=== PATIENT | female | born 1945 | race Caucasian/White ===

== ENCOUNTER → 2023-03-26 08:24 | Outpatient (REF) | payer MEDICARE, OTHER, SELFPAY ==
[2023-03-26 12:04] LABS: Vitamin D, 25-OH*** 66.6 ng/mL (30-80)
[2023-03-26 12:18] LABS: TSH Reflex To Free T4 0.43 uIU/ml (0.47-4.68)
[2023-03-26 12:25] LABS: Protein/creatinine Ratio 0.4; Urine Protein 11 mg/dl
[2023-03-26 12:47] LABS: Free T4 1.36 ng/dl (0.78-2.19)
[2023-03-26 14:04] LABS: Glycohemoglobin (HgbA1c) 5.9 % (4.0-5.6)
[2023-03-28 21:44] LABS: ANA, IgG Reflex to HEp-2 Detected (None Detected)
[2023-03-31 07:08] LABS: ANA, HEp-2, IgG Detected (<1:80)
[2023-03-31 07:11] LABS: ANA Pattern Speckled
== END ==
LOC: HWRAD 08:24
PROVIDERS: ATTENDING PHYSICIAN Nurse Practitioner Primary Care
DX: I10 Essential (primary) hypertension (principal); N18.31 Chronic kidney disease, stage 3a; G62.9 Polyneuropathy, unspecified; R73.03 Prediabetes; R42 Dizziness and giddiness; E55.9 Vitamin D deficiency, unspecified; M85.89 Other specified disorders of bone density and structure, multiple sites
CPT/HCPCS: 36415; 76770; 82306; 82570; 83036; 84156; 84439; 84443; 86038; 86039

== ENCOUNTER → 2023-03-28 12:37 | Outpatient (REF) | payer MEDICARE, OTHER, SELFPAY ==
[2023-03-28 15:52] LABS: % Basophils 0.5 % (0-2); % Eosinophils 3.7 % (0-6); % Immature Granulocytes 0.9 % (0-0.5); % Lymphocytes 18.8 % (20.5-51.1); % Monocytes 6.6 % (1.7-9.3); % Neutrophils 69.5 % (42.2-75.2); Absolute Eosinophils 0.3 10^3/uL (0-0.7); Absolute Immature Granulocytes 0.1 10^3/uL (0-0.05); Absolute Lymphocytes 1.5 10^3/uL (1.2-3.4); Absolute Monocytes 0.5 10^3/uL (0.1-0.6); Absolute Neutrophils 5.4 10^3/uL (1.4-6.5); Hematocrit 34.3 % (37.0-47.0); Hemoglobin 11.7 g/dL (12.0-16.0); Mean Corp Hgb Conc. 34.1 g/dL (33.0-37.0); Mean Corpuscular Hgb 29.8 pg (27.0-31.0); Mean Corpuscular Volume 87.3 fL (81.0-99.0); Mean Platelet Volume 10.4 fL (7.4-10.4); Nucleated Red Blood Cells % 0 %; Platelet Count 236 10^3/uL (130-400); Red Blood Cell Count 3.93 10^6/uL (4.20-5.40); Red Cell Dist. Width 13.2 % (11.5-14.5); White Blood Cell Count 7.8 10^3/uL (4.8-10.8)
[2023-03-28 16:14] LABS: Blood Urea Nitrogen 22 mg/dl (7-17); Calcium 9.3 mg/dl (8.4-10.2); Carbon Dioxide 24 mmol/L (22-30); Chloride 101 mmol/L (98-107); Glucose 99 mg/dl (70-99); Sodium 134 mmol/L (135-145); eGFR 58.39
[2023-03-28 16:20] LABS: Potassium 4.1 mmol/L (3.5-5.1)
== END ==
LOC: HWLAB 12:37
PROVIDERS: ATTENDING PHYSICIAN Orthopaedic Surgery Hand Surgery
DX: Z01.818 Encounter for other preprocedural examination (principal)
CPT/HCPCS: 36415; 80048; 85025; 93005

== ENCOUNTER → 2023-06-04 07:51 | Outpatient (REF) | payer MEDICARE, OTHER, SELFPAY ==
[2023-06-04 10:19] LABS: % Basophils 0.9 % (0-2); % Eosinophils 6.5 % (0-6); % Immature Granulocytes 0.5 % (0-0.5); % Lymphocytes 19.8 % (20.5-51.1); % Monocytes 7.1 % (1.7-9.3); % Neutrophils 65.2 % (42.2-75.2); Absolute Basophils 0.1 10^3/uL (0-0.2); Absolute Eosinophils 0.4 10^3/uL (0-0.7); Absolute Lymphocytes 1.3 10^3/uL (1.2-3.4); Absolute Monocytes 0.5 10^3/uL (0.1-0.6); Absolute Neutrophils 4.2 10^3/uL (1.4-6.5); Hematocrit 31.3 % (37.0-47.0); Hemoglobin 10.2 g/dL (12.0-16.0); Mean Corp Hgb Conc. 32.6 g/dL (33.0-37.0); Mean Corpuscular Hgb 28.3 pg (27.0-31.0); Mean Corpuscular Volume 86.9 fL (81.0-99.0); Mean Platelet Volume 9.6 fL (7.4-10.4); Nucleated Red Blood Cells % 0 %; Platelet Count 220 10^3/uL (130-400); Red Cell Dist. Width 13.9 % (11.5-14.5); White Blood Cell Count 6.5 10^3/uL (4.8-10.8)
[2023-06-04 10:47] LABS: Albumin 4.1 g/dl (3.5-5.0); Blood Urea Nitrogen 42 mg/dl (7-17); Carbon Dioxide 24 mmol/L (22-30); Chloride 100 mmol/L (98-107); Glucose 103 mg/dl (70-99); Iron 70 ug/dl (37-170); Magnesium 1.7 mg/dl (1.6-2.3); Phosphorus 5.1 mg/dl (2.5-4.5); Potassium 4.2 mmol/L (3.5-5.1); Sodium 131 mmol/L (135-145); eGFR 42.62
[2023-06-04 10:56] LABS: Percent Saturation 25 % (20-50); Total Iron Binding Capacity 276 ug/dl (265-497)
[2023-06-04 10:57] LABS: Intact PTH 20.9 pg/ml (13.6-85.8)
[2023-06-04 11:17] LABS: Free T4 1.24 ng/dl (0.78-2.19)
[2023-06-04 11:32] LABS: TSH 0.13 uIU/ml (0.47-4.68)
[2023-06-04 11:36] LABS: Ferritin 37.1 ng/ml (11.1-264.0)
== END ==
LOC: HWLAB 07:51
PROVIDERS: ATTENDING PHYSICIAN Nurse Practitioner Primary Care
DX: E78.2 Mixed hyperlipidemia (principal); N18.31 Chronic kidney disease, stage 3a; D64.9 Anemia, unspecified; E03.8 Other specified hypothyroidism
CPT/HCPCS: 36415; 80069; 82728; 83540; 83550; 83735; 83970; 84439; 84443; 85025

== ENCOUNTER → 2023-07-07 07:26 | Outpatient (REF) | payer MEDICARE, OTHER, SELFPAY ==
[2023-07-07 08:45] LABS: % Basophils 0.7 % (0-2); % Eosinophils 6.1 % (0-6); % Immature Granulocytes 0.7 % (0-0.5); % Lymphocytes 20.4 % (20.5-51.1); % Monocytes 9.2 % (1.7-9.3); % Neutrophils 62.9 % (42.2-75.2); Absolute Basophils 0.1 10^3/uL (0-0.2); Absolute Eosinophils 0.4 10^3/uL (0-0.7); Absolute Immature Granulocytes 0.1 10^3/uL (0-0.05); Absolute Lymphocytes 1.4 10^3/uL (1.2-3.4); Absolute Monocytes 0.6 10^3/uL (0.1-0.6); Absolute Neutrophils 4.2 10^3/uL (1.4-6.5); Blood Urea Nitrogen 33 mg/dl (7-17); Calcium 9.3 mg/dl (8.4-10.2); Carbon Dioxide 25 mmol/L (22-30); Chloride 98 mmol/L (98-107); Glucose 100 mg/dl (70-99); Hematocrit 31.4 % (37.0-47.0); Hemoglobin 10.7 g/dL (12.0-16.0); Mean Corp Hgb Conc. 34.1 g/dL (33.0-37.0); Mean Corpuscular Hgb 28.7 pg (27.0-31.0); Mean Corpuscular Volume 84.2 fL (81.0-99.0); Mean Platelet Volume 9.1 fL (7.4-10.4); Nucleated Red Blood Cells % 0 %; Platelet Count 227 10^3/uL (130-400); Red Blood Cell Count 3.73 10^6/uL (4.20-5.40); Red Cell Dist. Width 14.5 % (11.5-14.5); Sodium 132 mmol/L (135-145); White Blood Cell Count 6.7 10^3/uL (4.8-10.8); eGFR 42.62
[2023-07-07 09:43] LABS: Protein/creatinine Ratio 0.2; Urine Protein 16 mg/dl
[2023-07-07 09:51] LABS: Folate 12.8 ng/ml (2.76-20); Vitamin B12 643 pg/ml (239-931)
== END ==
LOC: HWLAB 07:26
PROVIDERS: ATTENDING PHYSICIAN Nurse Practitioner Primary Care
DX: N18.31 Chronic kidney disease, stage 3a (principal); Z79.899 Other long term (current) drug therapy
CPT/HCPCS: 36415; 80048; 82570; 82607; 82746; 84156; 85025

== ENCOUNTER → 2023-08-18 09:26 | Outpatient (REF) | payer MEDICARE, OTHER, SELFPAY ==
[2023-08-18 10:50] LABS: Osmolality Serum 300 mOsm/kg (275-300)
[2023-08-18 10:53] LABS: Albumin 4.6 g/dl (3.5-5.0); Blood Urea Nitrogen 29 mg/dl (7-17); Calcium 9.4 mg/dl (8.4-10.2); Carbon Dioxide 26 mmol/L (22-30); Chloride 103 mmol/L (98-107); Glucose 93 mg/dl (70-99); Phosphorus 5.2 mg/dl (2.5-4.5); Potassium 4.8 mmol/L (3.5-5.1); Sodium 138 mmol/L (135-145); eGFR 46.62
[2023-08-18 10:54] LABS: Osmolality Urine 629 mOsm/kg (300-900)
[2023-08-18 11:08] LABS: Urine Sodium 106 mmol/L (30-90)
[2023-08-18 11:21] LABS: TSH Reflex To Free T4 1.25 uIU/ml (0.47-4.68)
== END ==
LOC: REG 09:26
PROVIDERS: ATTENDING PHYSICIAN Internal Medicine
DX: N18.31 Chronic kidney disease, stage 3a (principal); E87.1 Hypo-osmolality and hyponatremia
CPT/HCPCS: 36415; 80069; 83930; 83935; 84300; 84443

== ENCOUNTER → 2023-10-28 07:20 | Outpatient (REF) | payer MEDICARE, OTHER, SELFPAY ==
[2023-10-28 09:34] LABS: % Basophils 0.8 % (0-2); % Immature Granulocytes 0.3 % (0-0.5); % Lymphocytes 11.3 % (20.5-51.1); % Monocytes 6.8 % (1.7-9.3); % Neutrophils 75.8 % (42.2-75.2); Absolute Basophils 0.1 10^3/uL (0-0.2); Absolute Eosinophils 0.3 10^3/uL (0-0.7); Absolute Lymphocytes 0.8 10^3/uL (1.2-3.4); Absolute Monocytes 0.5 10^3/uL (0.1-0.6); Hematocrit 32.7 % (37.0-47.0); Hemoglobin 10.9 g/dL (12.0-16.0); Mean Corp Hgb Conc. 33.3 g/dL (33.0-37.0); Mean Corpuscular Hgb 27.9 pg (27.0-31.0); Mean Corpuscular Volume 83.6 fL (81.0-99.0); Mean Platelet Volume 9.5 fL (7.4-10.4); Nucleated Red Blood Cells % 0 %; Platelet Count 246 10^3/uL (130-400); Red Blood Cell Count 3.91 10^6/uL (4.20-5.40); Red Cell Dist. Width 13.2 % (11.5-14.5); White Blood Cell Count 6.6 10^3/uL (4.8-10.8)
[2023-10-28 09:41] LABS: ALT (SGPT) 12 U/L (0-35); AST (SGOT) 20 U/L (14-36); Albumin 4.3 g/dl (3.5-5.0); Alkaline Phosphatase 84 U/L (38-126); Blood Urea Nitrogen 32 mg/dl (7-17); Calcium 9.3 mg/dl (8.4-10.2); Carbon Dioxide 24 mmol/L (22-30); Chloride 101 mmol/L (98-107); Creatine Phosphokinase 47 U/L (30-135); Glucose 99 mg/dl (70-99); HDL Cholesterol 94 mg/dl; Iron 72 ug/dl (37-170); LDL Cholesterol, Calculated 115 mg/dl; Potassium 4.5 mmol/L (3.5-5.1); Sodium 137 mmol/L (135-145); Total Bilirubin 0.5 mg/dl (0.2-1.3); Total Cholesterol 226 mg/dl (50-199); Total Protein 6.7 g/dl (6.3-8.2); Triglyceride 88 mg/dl (10-149); Very Low Density Lipoprotein 17 mg/dl (0-30); eGFR 51.75
[2023-10-28 09:50] LABS: Percent Saturation 22 % (20-50); Total Iron Binding Capacity 314 ug/dl (265-497)
[2023-10-28 10:14] LABS: Ferritin 14.8 ng/ml (11.1-264.0)
[2023-10-28 12:58] LABS: Glycohemoglobin (HgbA1c) 5.8 % (4.0-5.6)
[2023-10-30 15:23] LABS: Lyme Antibody Screen, EIA Negative (Negative)
== END ==
LOC: HWLAB 07:20
PROVIDERS: ATTENDING PHYSICIAN Nurse Practitioner Primary Care
DX: I10 Essential (primary) hypertension (principal); N18.31 Chronic kidney disease, stage 3a; R73.03 Prediabetes; E78.2 Mixed hyperlipidemia; D50.8 Other iron deficiency anemias
CPT/HCPCS: 36415; 80053; 80061; 82550; 82728; 83036; 83540; 83550; 85025; 86618

== ENCOUNTER → 2023-11-06 09:02 | Outpatient (REF) | payer MEDICARE, OTHER, SELFPAY | LOC: HWWDC 09:02 | PROVIDERS: ATTENDING PHYSICIAN Nurse Practitioner Primary Care; REFERRING PHYSICIAN Obstetrics & Gynecology | DX: Z12.31 Encounter for screening mammogram for malignant neoplasm of breast (principal) | CPT/HCPCS: 77063; 77067 ==

== ENCOUNTER → 2024-02-17 08:26 | Outpatient (REF) | payer MEDICARE, OTHER, SELFPAY ==
[2024-02-17 09:34] LABS: % Basophils 0.7 % (0-2); % Eosinophils 4.1 % (0-6); % Immature Granulocytes 0.2 % (0-0.5); % Lymphocytes 13.2 % (20.5-51.1); % Monocytes 6.1 % (1.7-9.3); % Neutrophils 75.7 % (42.2-75.2); Absolute Basophils 0.1 10^3/uL (0-0.2); Absolute Eosinophils 0.4 10^3/uL (0-0.7); Absolute Lymphocytes 1.2 10^3/uL (1.2-3.4); Absolute Monocytes 0.6 10^3/uL (0.1-0.6); Absolute Neutrophils 6.8 10^3/uL (1.4-6.5); Hemoglobin 11.4 g/dL (12.0-16.0); Mean Corp Hgb Conc. 32.6 g/dL (33.0-37.0); Mean Corpuscular Hgb 28.9 pg (27.0-31.0); Mean Corpuscular Volume 88.6 fL (81.0-99.0); Mean Platelet Volume 8.8 fL (7.4-10.4); Nucleated Red Blood Cells % 0 %; Platelet Count 268 10^3/uL (130-400); Red Blood Cell Count 3.95 10^6/uL (4.20-5.40); Red Cell Dist. Width 13.9 % (11.5-14.5)
== END ==
LOC: HWLAB 08:26
PROVIDERS: ATTENDING PHYSICIAN Nurse Practitioner Primary Care
DX: D50.8 Other iron deficiency anemias (principal)
CPT/HCPCS: 36415; 85025

== ENCOUNTER → 2024-05-10 10:49 | Outpatient (REF) | payer MEDICARE, OTHER, SELFPAY | LOC: RAD 10:49 | PROVIDERS: ATTENDING PHYSICIAN Nurse Practitioner Primary Care | DX: K21.9 Gastro-esophageal reflux disease without esophagitis (principal); R13.19 Other dysphagia | CPT/HCPCS: 74221 ==

== ENCOUNTER → 2024-05-12 09:15 | Outpatient (REF) | payer MEDICARE, OTHER, SELFPAY ==
[2024-05-12 12:47] LABS: Albumin 4.1 g/dl (3.5-5.0); Blood Urea Nitrogen 29 mg/dl (7-17); Calcium 9.2 mg/dl (8.4-10.2); Carbon Dioxide 28 mmol/L (22-30); Chloride 102 mmol/L (98-107); Glucose 102 mg/dl (70-99); Phosphorus 4.5 mg/dl (2.5-4.5); Potassium 4.2 mmol/L (3.5-5.1); Sodium 138 mmol/L (135-145); eGFR 58.02
[2024-05-12 13:08] LABS: Urine Protein 10 mg/dl (0-12)
== END ==
LOC: HWLAB 09:15
PROVIDERS: ATTENDING PHYSICIAN Internal Medicine; FAMILY PHYSICIAN Nurse Practitioner Primary Care
DX: N18.31 Chronic kidney disease, stage 3a (principal)
CPT/HCPCS: 36415; 80069; 82570; 84156

== ENCOUNTER → 2024-08-17 09:19 | Outpatient (REF) | payer MEDICARE, OTHER, SELFPAY ==
[2024-08-17 12:39] LABS: ALT (SGPT) 14 U/L (0-35); AST (SGOT) 17 U/L (14-36); Albumin 4.4 g/dl (3.5-5.0); Alkaline Phosphatase 70 U/L (38-126); Blood Urea Nitrogen 34 mg/dl (7-17); Calcium 9.2 mg/dl (8.4-10.2); Carbon Dioxide 27 mmol/L (22-30); Chloride 106 mmol/L (98-107); Glucose 98 mg/dl (70-99); Iron 70 ug/dl (37-170); Potassium 4.3 mmol/L (3.5-5.1); Sodium 139 mmol/L (135-145); Total Protein 6.8 g/dl (6.3-8.2); eGFR 57.66
[2024-08-17 12:49] LABS: Total Iron Binding Capacity 287 ug/dl (265-497)
[2024-08-17 13:12] LABS: Hematocrit 37.4 % (37.0-47.0); Hemoglobin 12.4 g/dL (12.0-16.0); Mean Corp Hgb Conc. 33.2 g/dL (33.0-37.0); Mean Corpuscular Volume 87.8 fL (81.0-99.0); Nucleated Red Blood Cells % 0 %; Platelet Count 282 10^3/uL (130-400); Red Cell Dist. Width 13.3 % (11.5-14.5)
[2024-08-17 13:14] LABS: Ferritin 42.3 ng/ml (11.1-264.0)
== END ==
LOC: HWLAB 09:19
PROVIDERS: ATTENDING PHYSICIAN Internal Medicine Hematology & Oncology; FAMILY PHYSICIAN Nurse Practitioner Primary Care
DX: N18.30 Chronic kidney disease, stage 3 unspecified (principal); D64.9 Anemia, unspecified
CPT/HCPCS: 36415; 80053; 82728; 83540; 83550; 85025

== ENCOUNTER → 2024-09-24 07:34 | Outpatient (REF) | payer MEDICARE, OTHER, SELFPAY ==
[2024-09-24 10:03] LABS: Urine Character Clear (Clear)
[2024-09-24 10:24] LABS: Glycohemoglobin (HgbA1c) 5.8 % (4.0-5.6)
[2024-09-24 13:28] LABS: HDL Cholesterol 92 mg/dl; LDL Cholesterol, Calculated 106 mg/dl; Very Low Density Lipoprotein 15 mg/dl (0-30)
[2024-09-24 14:31] LABS: Vitamin D, 25-OH*** 66.7 ng/mL (30-80)
== END ==
LOC: HWLAB 07:34
PROVIDERS: ATTENDING PHYSICIAN Nurse Practitioner Primary Care
DX: I10 Essential (primary) hypertension (principal); R73.03 Prediabetes; E78.2 Mixed hyperlipidemia; R53.83 Other fatigue; E55.9 Vitamin D deficiency, unspecified; R35.1 Nocturia
CPT/HCPCS: 36415; 80061; 81003; 82306; 83036; 84443

== ENCOUNTER → 2024-10-14 08:50 | Outpatient (REF) | payer MEDICARE, OTHER, SELFPAY | LOC: RAD 08:50 | PROVIDERS: ATTENDING PHYSICIAN Nurse Practitioner Primary Care | DX: K21.9 Gastro-esophageal reflux disease without esophagitis (principal); K44.9 Diaphragmatic hernia without obstruction or gangrene; R10.13 Epigastric pain | CPT/HCPCS: 74177; Q9967 ==

== ENCOUNTER → 2024-10-20 09:15 | Outpatient (REF) | payer MEDICARE, OTHER, SELFPAY | LOC: DHSLP 09:15 | PROVIDERS: ATTENDING PHYSICIAN Internal Medicine Critical Care Medicine; FAMILY PHYSICIAN Nurse Practitioner Primary Care | DX: G47.33 Obstructive sleep apnea (adult) (pediatric) (principal); G47.61 Periodic limb movement disorder | CPT/HCPCS: 95810 ==

== ENCOUNTER → 2024-11-08 07:59 | Outpatient (REF) | payer MEDICARE, OTHER, SELFPAY | LOC: HWWDC 07:59 | PROVIDERS: ATTENDING PHYSICIAN Nurse Practitioner Primary Care | DX: Z12.31 Encounter for screening mammogram for malignant neoplasm of breast (principal) | CPT/HCPCS: 77063; 77067 ==

== ENCOUNTER → 2024-11-22 13:12 | Outpatient (REF) | payer MEDICARE, OTHER, SELFPAY | LOC: HWRAD 13:12 | PROVIDERS: ATTENDING PHYSICIAN Nurse Practitioner Primary Care | DX: M85.89 Other specified disorders of bone density and structure, multiple sites (principal) | CPT/HCPCS: 77080 ==

== ENCOUNTER → 2024-12-03 07:38 | Outpatient (REF) | payer MEDICARE, OTHER, SELFPAY ==
[2024-12-03 09:08] LABS: Hematocrit 34.9 % (37.0-47.0); Hemoglobin 11.5 g/dL (12.0-16.0); Mean Corp Hgb Conc. 33.0 g/dL (33.0-37.0); Mean Corpuscular Volume 86.4 fL (81.0-99.0); Platelet Count 225 10^3/uL (130-400); Red Cell Dist. Width 13.2 % (11.5-14.5)
[2024-12-03 09:38] LABS: Blood Urea Nitrogen 28 mg/dl (7-17); Calcium 9.1 mg/dl (8.4-10.2); Carbon Dioxide 27 mmol/L (22-30); Chloride 104 mmol/L (98-107); Glucose 97 mg/dl (70-99); Potassium 4.1 mmol/L (3.5-5.1); Sodium 137 mmol/L (135-145); eGFR 57.66
== END ==
LOC: SDSPAT 07:38
PROVIDERS: ATTENDING PHYSICIAN Surgery; FAMILY PHYSICIAN Nurse Practitioner Primary Care
DX: Z01.818 Encounter for other preprocedural examination (principal)
CPT/HCPCS: 80048; 85027; 93005

== ENCOUNTER 2024-12-15 06:13 | Day surgery (SDC) | payer MEDICARE, OTHER, SELFPAY ==
[2024-12-03 13:57] VITALS: BMI 28.2
[2024-12-15] VITALS (12 sets, daily range): BP systolic 108–131; BP diastolic 58–87; BMI 28.2
[2024-12-15] MEDS: TYLENOL 1000 MG PO (09:56)
[2024-12-15] MEDS: NORMOSOL-R/PLASMALYTE-A 1000 IV ×2 (10:05→19:52)
[2024-12-15] MEDS: EMEND 40 MG PO (13:36)
--- NOTE | 2024-12-15 16:54 | W.IMMPOSTOP ---
Surgical Immed Post Op Note
-
Primary Surgeon: Ravinder
Assisting Surgeon: CHICA Dalal
Pre-op Diagnosis: Paraesophageal hernia
Post-op Diagnosis: Paraesophageal hernia
Procedure Performed: Laparoscopic paraesophageal hernia repair with Toupet fundoplication and intra-operative EGD
Anesthesia Type: General
Specimen / Cultures: None
Estimated Blood Loss: 3 cc
Complications: None
Operative Findings:
1. Small/moderate PEH with 25% of stomach in chest
2. > 3 cm esophageal mobilization
3. Posterior crural close with 0 silk x3 (2 pledget, 1 non-pledget), anterior 0 silk x1
4. Loose, floppy 2 cm Toupet fundoplication over 58Fr Bougie
5. Bl vagi identified, no pleural violation
6. EGD with no trauma, stricturing, appropriately oriented wrap
[2024-12-15] MEDS: OFIRMEV 100 IV (18:12)
--- NOTE | 2024-12-15 19:18 | PTCARENOTE ---
Pt arrived to [facility] via bed from PACU @ 191. Pt drowsy but AAOx3, vss w/ 4L nc. Admission assessment completed. Pt with no complaints of pain, jus gas discomfort. IVF initiated per order. Educated pt that she is strict NPO. Pt DTV @ 0100. Pt
oriented to room, call dia within reach, bed locked and in lowest position. Reviewed plan of care with patient and family at bedside. Answered all questions. Care ongoing.
[2024-12-16] VITALS (7 sets, daily range): BP systolic 114–143; BP diastolic 64–86
[2024-12-16] MEDS: OFIRMEV 100 IV ×3 (00:36→13:36)
[2024-12-16] MEDS: NORMOSOL-R/PLASMALYTE-A 1000 IV (05:58)
[2024-12-16 08:02] LABS: Hematocrit 32.4 % (37.0-47.0); Hemoglobin 10.5 g/dL (12.0-16.0); Mean Corp Hgb Conc. 32.4 g/dL (33.0-37.0); Mean Corpuscular Volume 88.0 fL (81.0-99.0); Platelet Count 240 10^3/uL (130-400); Red Cell Dist. Width 13.2 % (11.5-14.5)
[2024-12-16 08:25] LABS: Blood Urea Nitrogen 24 mg/dl (7-17); Calcium 8.3 mg/dl (8.4-10.2); Carbon Dioxide 22 mmol/L (22-30); Chloride 100 mmol/L (98-107); Estimated Creatinine Clearance 38 ml/min; Glucose 107 mg/dl (70-99); Potassium 4.3 mmol/L (3.5-5.1); Sodium 130 mmol/L (135-145); eGFR > 60.00
--- NOTE | 2024-12-16 10:47 | W.PN.GS2 ---
Today's Communication / Plan
-
-- Clears ADAT to fulls and then soft foods
-- Pain control: Tylenol, Toradol, Oxycodone, IV Dialudid PRN
-- IVF
-- Home meds, will need to order short acting Cymbalta for DC
-- DVT: Lovenox
-- Dispo pending
Assessment / Plan
-
Patient is a 79 yo F POD#1 s/p laparoscopic paraesophageal hernia with Toupet fundoplication and intraoperative EGD
AVSS
Labs notable for normal WBC, stable Hb, hyponatremia, normal renal function
Recovering well. No postoperative concerns. Dietary advancement throughout the day. Dispo today versus tomorrow pending dietary tolerance, pain and ambulation.
-- Clears ADAT to fulls and then soft foods
-- Pain control: Tylenol, Toradol, Oxycodone, IV Dialudid PRN
-- IVF
-- Home meds, will need to order short acting Cymbalta for DC
-- DVT: Lovenox
-- GI: None needed
-- OOB/ambulate
-- Dispo pending
Subjective Data
-
Date of Service: December 16, 2024
No concerns or complaints. Slept well. Pain overall well-controlled, denies any significant chest or abdominal pain. No nausea or vomiting. No reflux symptoms. Afebrile. Minimal ambulation. Voiding.
Objective Data
-
Intake and Output
12/15/24 12/16/24 12/17/24
06:59 06:59 06:59
Intake Total 2230 / 2230
Output Total 750 / 750
Balance 1480 / 1480
Intake:
Oral fluids 480 / 480
IV fluids (Total) 1450 / 1450
Normosol 350 / 350
IV piggybacks 300 / 300
Output:
Urine, Hunter 200 / 200
Urine, Voided 550 / 550
Other:
Number of approximated MODERATE 1
amounts of urine
Vital Signs
Temp Pulse Resp BP Pulse Ox
98.3 F 82 16 142/67 94
12/16/24 07:13 12/16/24 07:13 12/16/24 07:13 12/16/24 07:13 12/16/24 07:13
Lab Results
12/16/24 06:50
12/16/24 06:50
Calcium 8.3 mg/dl (8.4-10.2) L 12/16/24 06:50
Physical Exam
-
Gen: NAD
Abd: soft, NT, ND, non-peritoneal, incisions c/d/i - no erythema, ecchymosis or drainage
Patient has a hunter catheter: No
Patient has a central line: No
[2024-12-16] MEDS: PRAVACHOL 20 MG PO (11:56)
--- NOTE | 2024-12-16 15:00 | CM ---
Patient seen at bedside in [address] [place] [address]. Patient lives with her daughter in a split level or bi level home. Patient stated it was 4 steps to enter and she uses the [facility] [place] for PCP. Patient uses the [facility] [address] in [place].
Patient is currently here as SDC and states that she does not anticipate any needs at discharge at this time. CM will continue to follow for discharge planning needs.
Plan; home with no needs; pending medical treatment plan
[2024-12-16] MEDS: NORMOSOL-R/PLASMALYTE-A IV (16:11)
[2024-12-16] MEDS: FLUZONE HIGH-DOSE 2025-26 0.5 ML IM (17:37)
[2024-12-16] MEDS: LOVENOX 40 MG SC (17:37)
== END 2024-12-16 19:32 | disposition home or self-care (01) ==
LOC: SDS 06:13
PROVIDERS: ATTENDING PHYSICIAN Surgery
DX: K44.9 Diaphragmatic hernia without obstruction or gangrene (principal)
CPT/HCPCS: 43281; 80048; 85027; 90662; C1729; G0008